=== PATIENT | female | born 1985 | race Caucasian/White ===

== ENCOUNTER → 2018-01-15 | Outpatient (CLI) | payer OTHER ==
--- NOTE | 2018-01-15 15:24 | US ---
EXAMINATION TYPE: US kidneys/renal and bladder DATE OF EXAM: 01/15/2018 COMPARISON: NONE CLINICAL HISTORY: 32-year-old female R31.9 Hematuria. Hematuria, urinary frequency, back pain TECHNIQUE: Multiple sonographic images of the kidneys and bladder were obtained. FINDINGS: EXAM MEASUREMENTS: Right Kidney: 10.2 x 5.3 x 5.3 cm Left Kidney: 11.1 x 5.3 x 4.8 cm Cab Driver notes: Technical limitations due to large amount of overlying bowel content Right Kidney: lower pole obscured by overlying bowel, visualized portions show no evidence of hydrone phrosis Left Kidney: no evidence of hydronephrosis Bladder: appears wnl Bilateral Jets seen: yes IMPRESSION: 1. No hydronephrosis. 2. No gross abnormality of the urinary bladder. Both ureteral jets are seen.
== END | disposition home or self-care (01) ==
LOC: RADUSWWP 12:18
PROVIDERS: ATTEND Internal Medicine
DX: R31.9 Hematuria, unspecified (principal); Z96.0 Presence of urogenital implants
CPT/HCPCS: 76770

== ENCOUNTER → 2018-01-29 | Outpatient (CLI) | payer OTHER ==
--- NOTE | 2018-01-29 18:29 | US ---
EXAMINATION TYPE: US transvaginal DATE OF EXAM: 01/29/2018 COMPARISON: CT pelvis 05/23/2017 CLINICAL HISTORY: N83.209 Ovarian cyst. left side discomfort TECHNIQUE: Transvaginal (TV). EXAM MEASUREMENTS: Uterus: 6.9 x 5.5 x 5.3 cm Endometrial Stripe: Right horn- 0.6 cm Left horn- 0.7 cm Right Ovary: 3.7 x 2.6 x 2.0 cm Left Ovary: 4.1 x 2.2 x 1.7 cm 1. Uterus: Retroverted wnl 2. Endometrium: At fundal region, endometrium appears as a 'T' shape, possible arcuate uterus? 3. Right Ovary: follicles seen 4. Left Ovary: follicles seen 5. Bilateral Adnexa: wnl 6. Posterior cul-de-sac: free fluid seen Cervix- wnl Grayscale, color Doppler imaging performed, color flow noted to the ovaries IMPRESSION: Suspect an arcuate uterus. Small amount of free fluid present in the cul-de-sac. Small fo llicles associated with the ovaries. Dominant follicle in the right ovary measures 1.1 cm.
== END ==
LOC: RADUSWWP 16:54
PROVIDERS: ATTEND Internal Medicine
DX: N83.209 Unspecified ovarian cyst, unspecified side (principal)
CPT/HCPCS: 76830

== ENCOUNTER → 2018-08-07 | Outpatient (CLI) | payer OTHER ==
[2018-08-07 11:41] LABS: Glucose 3 Hour, Gest 90 mg/dL
== END | disposition home or self-care (01) ==
LOC: LABWHC1 07:28
PROVIDERS: ATTEND Obstetrics & Gynecology
DX: O99.810 Abnormal glucose complicating pregnancy (principal); Z3A.00 Weeks of gestation of pregnancy not specified
CPT/HCPCS: 36415; 82951; 82952

== ENCOUNTER 2018-08-17 15:26 | Emergency (ER) | payer OTHER ==
[2018-08-17 15:46] VITALS: BP 114/78; TEMP 98.2
--- NOTE | 2018-08-17 17:17 | XR ---
PROCEDURE: XR hand complete LT - 3V DATE AND TIME: 08/17/2018 4:58 PM CLINICAL INDICATION: PHH; Pain after injury TECHNIQUE: Department protocol COMPARISON: None FINDINGS: There is no fracture or malalignment. The soft tissues are unremarkable. IMPRESSION: NO ACUTE PROCESS.
--- NOTE | 2018-08-17 17:29 | ED ---
Fall HPI - General Chief Complaint: Fall Stated Complaint: fall-[facility] Time Seen by Provider: 08/17/18 16:07 Source: patient Mode of arrival: ambulatory - History of Present Illness Initial Comments: 32-year-old female past medical history 31 weeks presents for follow- up. She states that earlier today she was leaning at the table that broke. She states that she attempted to prevent her belly from hitting the ground so she twisted catching her fall to her left hand. Patient states she hit her face on a Bit, she denies loss of consciousness or significant head injury. She states that she will service pain in her left hand. Patient denies any injury or trauma to the abdomen. She denies A without pain, nausea, vomiting, vaginal bleeding, vaginal discharge. She states that she was able to avoid hitting her belly. She states that since she has had pain in her left hand. Patient was concerned of possible fracture present for evaluation. Remaining review of s ystems negative upon arrival patient appears well. No signs of acute distress. Patient denies any recent fever, chills, shortness of breath, chest pain, back pain, abdominal pain, nausea or vomiting, numbness or tingling, dysuria or hematuria, constipation or diarrhea, headaches or visual changes, or any other complaints. - Related Data Home Medications Medication Instructions Recorded Confirmed HYDROcodone/APAP 5-325MG [[place] 5] 1 each PO Q4HR PRN 09/04/14 09/05/14 Previous Rx's Medication Instructions Recorded Hydrocodone/Acetaminophen [[place] 1 - 2 each PO Q4HR PRN #10 tab 09/05/14 5-325] Allergies Allergy/AdvReac Type Severity Reaction Status Date / Time amoxicillin Allergy Unknown Verified 08/17/18 15:46 Review of Systems ROS Statement: Those systems with pertinent positive or pertinent negative responses have been documented in the HPI. ROS Other: All systems not noted in ROS Statement are negative. Past Medical History Past Medical History: No Reported History History of Any Multi-Drug Resistant Organisms: None Reported Past Surgical History: Appendectomy Past Psychological History: No Psychological Hx Reported Smoking Status: Never smoker Past Alcohol Use History: None Reported Past Drug Use History: None Reported General Exam - General Exam Comments Initial Comments: General: The patient is awake and alert, in no distress, and does not appear acutely ill. Eye: +3 mm pupils are equal, round and reactive to light, extra-ocular movements are intact. No nystagmus. There is normal conjunctiva bilaterally. No signs of icterus. Ears, nose, mouth and throat: There are moist mucous membranes and no oral lesions. no raccoon or Hillman sign. No swelling of the orbits. No ecchymosis. No raccoon or Hillman sign. No palpable defect of the orbits. No nasal deviation. No ecchymosis. Neck: The neck is supple, there is no tenderness or JVD. Cardiovascular: There is a regular rate and rhythm. No murmur, rub or gallop is appreciated. Respiratory: Lungs are clear to auscultation, respirations are non-labored, breath sounds are equal. No wheezes, stridor, rales, or rhonchi. Gastrointestinal: Non-tender abdomen without masses or organomegaly noted. There is no rebound or guarding present. Musculoskeletal: normal inspection of the hands bilaterally. Patient is tender to patient over the thumb near the MTP joint. Patient has no scaphoid tenderness.Normal ROM, at the MTP DIP and PIP joints of all 5 digits of the hands equal and comparison of the unaffected hand. Strength 5/5. Sensation intact. Radial pulses equal bilaterally 2+. capillary refill less than 2 seconds. no scaphoid tenderness. No pain to palpation of the carpals elbow or shoulder. Full range of motion at the shoulder otherwise and wrists equal comparison with the unaffected upper extremity. Neurological: A&O x 3. CN II-XII intact, There are no obvious motor or sensory deficits. Coordination appears grossly intact. Speech is normal. Skin: Skin is warm and dry and no rashes or lesions are noted. Psychiatric: Cooperative, appropriate mood & affect, normal judgment. Limitations: no limitations Course Vital Signs 08/17/18 08/17/18 15:42 17:52 Temperature 98.2 F Pulse Rate 83 60 Respiratory 18 16 Rate Blood Pressure 114/78 O2 Sat by Pulse 98 100 Oximetry Medical Decision Making - Medical Decision Making 32-year-old female presenting for follow-up. Patient denies any abdominal trauma, she was asked repetitively, states that she knows she did not have any abdominal trauma. Has no abdominal complaints. Patient complaining of left hand pain. X-ray negative for acute osseous injury. No evidence of limitation of strength or range of motion of the thumb upon examination. No scaphoid tenderness. At this time feel patient has some strain patient will be discharged with outpatient follow-up with primary care provider. Return parameters discussed with the patient verbalizes understanding. Patient discharged in stable condition appearing well. deny questions this time. Case discussed with attending provider: Prior to patient's discharge. Disposition Clinical Impression: Hand pain, left, Hand strain Disposition: HOME SELF-CARE Condition: Good Instructions (If sedation given, give patient instructions): Hand Sprain (ED) Additional Instructions: Please use medication as discussed. Please follow-up with family doctor in the next 2 days.. Please return to emergency room if the symptoms increase or worsen or for any other concerns. Is patient prescribed a controlled substance at d/c from ED?: No Referrals: Belkis Escobedo MD [Primary Care Provider] - 1-2 days Time of Disposition: 17:29
[2018-08-17 17:53] VITALS: PULSE 60; RESP 16
== END 2018-08-17 17:53 | disposition home or self-care (01) ==
LOC: EC 15:26
DX: O9A.213 Injury, poisoning and certain other consequences of external causes complicating pregnancy, third trimester (principal); S66.912A Strain of unspecified muscle, fascia and tendon at wrist and hand level, left hand, initial encounter; Z88.0 Allergy status to penicillin; Z3A.31 31 weeks gestation of pregnancy; W01.0XXA Fall on same level from slipping, tripping and stumbling without subsequent striking against object, initial encounter; Y93.89 Activity, other specified; Y92.69 Other specified industrial and construction area as the place of occurrence of the external cause; Y99.0 Civilian activity done for income or pay
CPT/HCPCS: 99283